=== PATIENT | male | born 1960 | race Caucasian/White ===

== ENCOUNTER 2018-09-05 05:44 | Emergency (ER) | payer BC, OTHER ==
[2018-09-05] MEDS: SOD CHLORIDE 0.9% 1,000 ML IV (06:02)
[2018-09-05] MEDS: ONDANSETRON 4 MG INJ IV (06:03)
[2018-09-05] MEDS: morphine 4 MG/ML VIAL IV (06:03)
[2018-09-05 06:14] LABS: ADD MAN DIFF? NO
[2018-09-05 06:18] LABS: BASOPHILS % 0.5 % (0.0-2.0); EOSINOPHILS # 0.1 10^3/ul (0.0-0.5); EOSINOPHILS % 1.8 % (0.0-7.0); HEMATOCRIT 44.2 % (42.0-52.0); HEMOGLOBIN 15.4 g/dl (14.0-18.0); LYMPHOCYTES # 1.8 10^3/ul (0.8-2.9); LYMPHOCYTES % 22.3 % (15.0-51.0); MEAN CORPUSCULAR HEMOGLOBIN 32.2 pg (29.0-33.0); MEAN CORPUSCULAR HGB CONC 34.8 g/dl (32.0-37.0); MEAN CORPUSCULAR VOLUME 92.3 fl (82.0-101.0); MEAN PLATELET VOLUME 10.3 fl (7.4-10.4); MONOCYTE # 0.6 10^3/ul (0.3-0.9); MONOCYTES % 7.4 % (0.0-11.0); NEUTROPHIL # 5.3 10^3/ul (1.6-7.5); NEUTROPHILS % 67.6 % (39.0-77.0); PLATELET COUNT 292 10^3/UL (140-415); RED BLOOD COUNT 4.79 10^6/ul (4.70-6.10); RED CELL DISTRIBUTION WIDTH 12.1 % (11.5-14.5)
[2018-09-05 06:18] LABS: WHITE BLOOD COUNT 7.8 10^3/ul (4.8-10.8)
[2018-09-05 06:37] LABS: ALANINE AMINOTRANSFERASE 43 IU/L (13-69); ALBUMIN 4.2 g/dl (3.3-4.9); ALBUMIN/GLOBULIN RATIO 1.13; ALKALINE PHOSPHATASE 86 IU/L (42-121); ANION GAP 7 (5-13); ASPARTATE AMINO TRANSFERASE 34 IU/L (15-46); BILIRUBIN,INDIRECT 0.6 mg/dl (0-1.1); BILIRUBIN,TOTAL 0.6 mg/dl (0.2-1.3); BLOOD UREA NITROGEN 16 mg/dl (7-20); CALCIUM 8.9 mg/dl (8.4-10.2); CARBON DIOXIDE 28 mmol/L (21-31); CHLORIDE 106 mmol/L (97-110); Estimated GFR > 60 mL/min (>60); GLUCOSE 146 mg/dl (70-220); LIPASE 138 U/L (23-300); POTASSIUM 4.2 mmol/L (3.5-5.1); SODIUM 141 mmol/L (135-144); TOTAL PROTEIN 7.9 g/dl (6.1-8.1)
[2018-09-05] MEDS: KETOROLAC 15 MG INJ IV (06:54)
== END 2018-09-05 08:05 | disposition home or self-care (01) ==
LOC: E/R 05:44
DX: N20.1 Calculus of ureter (principal); I10 Essential (primary) hypertension
CPT/HCPCS: 36415; 74176; 80053; 83690; 85025; 96374; 96375; 99285-25